=== PATIENT | male | born 1990 | race Caucasian/White ===

== ENCOUNTER 2024-09-29 16:26 | Emergency (ER) | payer MEDICAID, SELFPAY ==
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
[2024-09-29 17:10] LABS: Basophils # (Auto) 0.1 Thou/mm3 (0.0-0.2); Basophils % (Auto) 1 % (0-2.5); Eosinophils # (Auto) 0.3 Thou/mm3 (0.0-0.5); Eosinophils % (Auto) 3 % (0-10); Immature Granulocytes % (Auto) 0 % (0-0); Immature Granulocytes Auto 0.03 Thou/mm3 (0.00-0.00); Lymphocytes # (Auto) 1.8 Thou/mm3 (1.0-4.8); Lymphocytes % (Auto) 18 % (10-50); Mean Corpuscular HGB Conc 34.2 g/dl (31.0-37.0); Mean Corpuscular Hemoglobin 30.2 pg (25.0-35.0); Mean Corpuscular Volume 88 fL (80-100); Monocytes # (Auto) 0.6 Thou/mm3 (0.0-0.8); Monocytes % (Auto) 6 % (0-12); Neutrophils # (Auto) 7.3 Thou/mm3 (1.8-7.7); Neutrophils % (Auto) 73 % (37-80); Nucleated Red Blood Cell % 0 /100 WBC (0); Platelet Count 312 Thou/mm3 (140-440); RDW Standard Deviation 37.7 fL (35.1-43.9); White Blood Count 10.1 Thou/mm3 (3.8-10.6)
[2024-09-29 17:23] VITALS: BMI 25.1
[2024-09-29 17:56] VITALS: BP 134/86; PULSE 73; RESP 16; TEMP 37.1; O2SAT 98
[2024-09-29 18:15] LABS: Acetaminophen < 2.0 mcg/mL (10.0-20.0); Alanine Aminotransferase 15 U/L (10-49); Albumin, Serum 4.6 gm/dL (3.5-5.0); Albumin/Globulin Ratio 1.6 (1.2-2.2); Alcohol, Blood Medical < 3.0 mg/dL (0-10.0); Alkaline Phosphatase 55 U/L (46-116); Anion Gap 8 (7-16); Aspartate Amino Transferase 19 U/L (0-34); BUN/Creatinine Ratio 17 Ratio (12-20); Bilirubin,Total 0.6 mg/dL (0.3-1.2); Blood Urea Nitrogen 17 mg/dL (9-23); Calcium 9.4 mg/dL (8.3-10.6); Calcium (Corrected) 9.4 mg/dL (8.5-10.1); Carbon Dioxide 27.8 mMol/L (20.0-31.0); Chloride 105 mMol/L (98-107); Estimated Creatinine Clearance 102.1 mL/min (>60); Globulin 2.8 gm/dL (2.3-3.5); Glucose 97 mg/dL (74-106); Osmolality,Calculated 282 (275-295); Potassium 3.7 mMol/L (3.4-5.1); Salicylate < 3.0 mg/dL; Sodium 141 mMol/L (136-145); Total Protein 7.4 gm/dL (5.7-8.2); eGFR > 60 See Note
--- NOTE | 2024-09-29 20:35 | PC.NURSE ---
Introduced self to pt at this time. pt lying in gurney in NAD. Pt being cooperative. pt informed ua sample is needed. Pt given urinal. pt denies any si, visual, auditory hallucinations. pt updated on care plan. sitter in place.
[2024-09-29 23:48] VITALS: BP 111/65; PULSE 70; RESP 18; TEMP 36.6; O2SAT 97
[2024-09-30 00:16] LABS: Collection Type, Urine Clean Catch; Squamous Epithelial Cell,Urine 0 /hpf (0-5)
[2024-09-30 00:24] LABS: Bacteria,Urine Rare; Bilirubin,Urine Negative (Negative); Blood,Urine Trace (Negative); Clarity,Urine Clear (Clear/Hazy); Color,Urine Yellow (Lt Yel-Yel); Glucose, Urine Negative (Negative); Ketones,Urine Negative (Negative); Leukocyte Esterase,Urine Negative (Negative); Nitrite,Urine Negative (Negative); Protein,Urine Trace (Neg - Trace); RBC,Urine 13 /hpf (0-3); Specific Gravity,Urine 1.035 (1.001-1.035); WBC,Urine 4 /hpf (0-5)
--- NOTE | 2024-09-30 00:30 | PD.EDADDENDU ---
Emergency Room Addendum Addendum Narrative: 2300: Care assumed from Pasha Salcido. Past medical, surgical, social and family history reviewed. Vitals and home medications reviewed. Results and treatment plan discussed. I will assume the care of the patient at this time and will follow the patient, pending mental health evaluation and final disposition. Please refer to the emergency department record for history and examination from initial visit. The following addendum documentation note is intended to reflect any pending information, findings, or radiology results not included in the patient?s initial chart. Patient in observation for treatment and monitoring of psychiatric symptoms. Treatment plan includes psychiatric consult, reassessments, and possible placement into psychiatric facility. 0600: Care signed out to [facility] provider. Past medical, surgical, social and family history reviewed. Vitals and home medications reviewed. Results and treatment plan discussed. They will assume the care of the patient at this time and will follow the patient, pending mental health evaluation and final disposition. MD Attestation MD Attestation Scribe Attestation: I, Genesis Husain, am scribing for and in the presence of Dr. Min. Provider Notation: Although this document has been carefully reviewed, there may still be some phonetic and other typographical errors. These errors are purely grammatical due to imperfections in the software program and should not be construed in any way to compromise the substance of the patient's medical care during this visit.
[2024-09-30 00:37] LABS: Amphetamine/Methamp Scrn,U Positive (Negative); Barbiturate Screen,Urine Negative (Negative); Benzodiazepines Screen,Urine Negative (Negative); Benzoylecgonine Screen, Ur Negative (Negative); Fentanyl Screen,Urine Negative (Negative); Opiate Screen,Urine Negative (Negative); THC Screen,Urine Negative (Negative)
[2024-09-30 03:49] VITALS: BP 119/70; PULSE 64; RESP 17; TEMP 36.7; O2SAT 97
[2024-09-30 06:00] VITALS: BP 115/74; PULSE 61; RESP 17; TEMP 36.7; O2SAT 98
--- NOTE | 2024-09-30 07:08 | EDNOTE_ITS ---
Emergency Room Addendum <Sparkle Carcamo - Last Filed: 09/30/24 09:10> Addendum Narrative: 0600: Care assumed from Dr. Min, the previous shift emergency physician. Past medical, surgical, social and family history reviewed. Vitals and home medications reviewed. I will assume the care of the patient at this time, pending mental health evaluation and final disposition. Please refer to the emergency department record for history and examination from initial visit.? Physical exam by me shows patient under no acute distress at this time. 0908: Mental health cleared the patient. Safety plan in place. Patient will be discharged. <Jalen Mckoy MD - Last Filed: 09/30/24 09:14> Addendum Narrative: 0600: Care assumed from Dr. Min, the previous shift emergency physician. Past medical, surgical, social and family history reviewed. Vitals and home medications reviewed. I will assume the care of the patient at this time, pending mental health evaluation and final disposition. Please refer to the emergency department record for history and examination from initial visit.? Physical exam by me shows patient under no acute distress at this time. 0908: Mental health cleared the patient. Safety plan in place. Patient will be discharged. Patient has been comfortable while waiting for mental health evaluation. child protective services social worker came in as resend the 5150 feel he is safe to follow-up with outpatient mental health and alcohol call and drug program. Patient has been comfortable today no outburst was advised and will follow-up with them and knows return to getting worse anyway.
[2024-09-30 08:21] VITALS: BP 130/74; PULSE 65; RESP 16; TEMP 36.7; O2SAT 97
--- NOTE | 2024-09-30 08:24 | PC.NURSE ---
TELEVISION PRODUCTION TECHNICIAN IN ROOM TO EVALUATE PATIENT AT THIS TIME. PATIENT ALERT AND ORIENTED ANSWERING QUESTIONS APPROPRIATELY . WILL CONTINUE TO MONITOR WITH 1:1 SITTER AT BEDSIDE.
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
== END 2024-09-30 09:41 | disposition home or self-care (01) ==
PROVIDERS: Nurse Practitioner Family; Emergency Provider Emergency Medicine
DX: R45.851 Suicidal ideations (principal)
CPT/HCPCS: 36415; 80053; 80307; 80320; 80329; 81001; 85025; 96127; 99284; G0480